=== PATIENT | male | born 1980 | race American Indian/Alaskan Native ===

== ENCOUNTER 2019-08-20 21:39 | Emergency (ER) | payer SELFPAY ==
[2019-08-20 23:16] VITALS: BP 142/86
[2019-08-21 00:06] LABS: Basophils % (Auto) 0.8 % (0.0-1.8); Hematocrit 43.6 % (35.5-45.6); Hemoglobin 14.4 gm/dl (11.8-15.2); Lymphocytes # (Auto) 0.8 K/mm3 (1.2-5.4); Lymphocytes % (Auto) 13.4 % (13.4-35.0); Mean Corpuscular HGB Conc 33 % (32-34); Mean Corpuscular Volume 82 fl (84-94); Monocytes # (Auto) 0.2 K/mm3 (0.0-0.8); Monocytes % (Auto) 3.5 % (0.0-7.3); Platelet Count 614 K/mm3 (140-440); Red Blood Count 5.34 M/mm3 (3.65-5.03); Red Cell Distribution Width 14.1 % (13.2-15.2)
[2019-08-21 00:20] LABS: Bacteria,Urine 1+ /HPF (Negative); Bilirubin,Urine NEG (Negative); Blood,Urine NEG (Negative); Color,Urine Yellow (Yellow); Mucus,Urine 1+ /HPF; Urobilinogen,Urine < 2.0 mg/dL (<2.0)
[2019-08-21 00:20] LABS: Alanine Aminotransferase 33 units/L (7-56); Albumin 4.3 g/dL (3.9-5); BUN/Creatinine Ratio 9; Blood Urea Nitrogen 6 mg/dL (9-20); Calcium 9.7 mg/dL (8.4-10.2); Hemolysis Index 4
[2019-08-21] MEDS ORDERED: ONDANSETRON 4 MG ODT TAB ONE (01:27)
[2019-08-21] MEDS ORDERED: ONDANSETRON 4 MG ODT TAB PO ONE (01:27)
--- NOTE | 2019-08-21 05:54 | XRay Report ---
ABDOMEN 2 VIEWS INDICATION / CLINICAL INFORMATION: Abd pain. COMPARISON: None available. FINDINGS: Nonspecific bowel gas pattern. No definite evidence of obstruction or pneumoperitoneum Signer Name: Germán Evans MD FACR Signed: 08/21/2019 5:49 AM Workstation Name: [id number]
--- NOTE | 2019-08-21 06:57 | Emergency Department Report ---
Chief Complaint: Abdominal Pain Stated Complaint: ABDOMINAL PAIN - HPI History of Present Illness: Patient here on 08/09 with abdominal and flank pain. CT at that time showed diverticulitis with contained perforation without free air or abscess. No surgical intervention done while admitted. The patient was supposed to follow- up outpatient with general surgery. - Exam Vital Signs: Vital Signs 08/20/19 08/21/19 23:14 05:35 Temperature 97.9 F Pulse Rate 57 L Respiratory 18 18 Rate Blood Pressure 142/86 O2 Sat by Pulse 100 Oximetry MSE screening note: Focused history and physical exam performed. Due to findings the following was ordered: Labs have been unremarkable except for some ketones in the urine. Abdominal x- ray shows nonspecific nonobstructive bowel gas. CT scan of the abdomen and pelvis without contrast has been ordered. ED Medical Decision Making - Lab Data Result diagrams: 08/20/19 23:23 08/20/19 23:23 ED Disposition for MSE Condition: Stable Referrals: PRIMARY CARE, [Primary Care Provider] - 3-5 Days
--- NOTE | 2019-08-21 07:09 | Cat Scan Report ---
CT abdomen pelvis wo con INDICATION / CLINICAL INFORMATION: Pt complains of L.L.Q. abd pain, hx of recent diverticulosis / diverticulitis with perforation.. TECHNIQUE: All CT scans at this location are performed using CT dose reduction for ALARA by means of automated e xposure control. COMPARISON: 08/10/2019 FINDINGS: No free fluid is seen in the abdomen. Less retroperitoneal air is seen than on the prior examination. Pericolonic inflammation is also significantly diminished from the prior exam. The liver, spleen, ki dneys, pancreas, adrenal glands and great vessels are normal. In the pelvis, a trace of fluid is present. No enlarged lymph nodes are identified. The bladder is no rmal. The appendix is not well visualized. IMPRESSION: Decreased retroperitoneal air and pericolonic inflammation since prior examination dated 08/10/2019. N o abscess is identified. Signer Name: Germán Evans MD FACR Signed: 08/21/2019 7:05 AM Workstation Name: [id number]
== END 2019-08-21 08:15 | disposition left against medical advice (07) ==
LOC: ED 21:39
DX: R10.9 Unspecified abdominal pain (principal)
CPT/HCPCS: 36415; 74019; 74176; 80053; 81001; 83690; 85025; Q0162